=== PATIENT | female | born 1995 ===

== ENCOUNTER 2023-12-21 14:38 | Outpatient (CLI) | payer OTHER, SELFPAY ==
--- NOTE | ~2023-12-21 | US_ITS ---
EXAMINATION: US pelvic complete w TV DATE: 12/21/2023 15:44 INDICATION: Right lower quadrant abdominal pain. TECHNIQUE: Multiple transabdominal and transvaginal sonographic images of the pelvis were obtained. COMPARISON: None. FINDINGS: TRANSABDOMINAL ULTRASOUND: The uterus measures 6.6 x 4.6 x 4.9 cm. There is no free fluid in the pelvis. TRANSVAGINAL ULTRASOUND: The endometrial complex measures 6 mm in thickness. The right ovary measures 4.6 x 3.7 x 2.8 cm. Ther e is a 2.9 cm cyst with low-level echoes in right ovary, consistent with a hemorrhagic cyst. The left ovary measures 3.9 x 2.7 x 3.4 cm. There is a 3.4 cm cyst in left ovary. There is normal vascular fl ow in the ovaries. IMPRESSION: 1. 2.9 cm hemorrhagic cyst in right ovary. 2. 3.4 cm cyst in left ovary, likely a follicular cyst. Reviewed, dictated and finalized at location E. GY ADVISOR
== END 2023-12-21 14:39 ==
LOC: MICIMG 14:44
PROVIDERS: Visit Provider Nurse Practitioner
DX: R10.2 Pelvic and perineal pain (principal); N83.202 Unspecified ovarian cyst, left side; N83.201 Unspecified ovarian cyst, right side
CPT/HCPCS: 76830; 76856

== ENCOUNTER 2024-02-26 15:03 | Outpatient (CLI) | payer OTHER, SELFPAY ==
--- NOTE | ~2024-02-26 | XR_ITS ---
XR lumbar spine 6V w bending 02/26/2024 16:00 Indication: Worsening low back pain Procedure: 8 views lumbar spine including flexion/extension views Comparison: No prior studies for comparison. Findings: There is levoscoliosis centered at the thoracolumbar junction. Vertebral body heights are m aintained. No fracture, subluxation or spondylolisthesis. No significant alteration of alignment with flexion/extension. Sacral foramen are symmetric. Pedicles intact. Impression: 1: Levoscoliosis centered at the thoracolumbar junction measuring 17 degrees. Reviewed, dictated and finalized at location B. Impression: 1: Levoscoliosis centered at the thoracolumbar junction measuring 17 degrees.
== END 2024-02-26 15:04 ==
DX: M41.85 Other forms of scoliosis, thoracolumbar region (principal); M54.42 Lumbago with sciatica, left side; M54.41 Lumbago with sciatica, right side; G89.29 Other chronic pain
CPT/HCPCS: 72114